=== PATIENT | male | born 1950 | race Caucasian/White ===

== ENCOUNTER 2017-12-02 15:18 | Observation (INO) | payer OTHER, MEDICARE ==
[~2017-12-02] VITALS: Ht 180.3 cm; Wt 77.1 kg
--- NOTE | 2017-12-02 16:08 | ED PSYCHIATRIC COMPLAINT ---
See Addendum History of Present Illness General Chief Complaint: ETOH/Drug Related Complaint Stated Complaint: SENT IN FOR HIGHWATCH DETOX Source: patient Exam Limitations: no limitations Vital Signs & Intake/Output Vital Signs & Intake/Output Vital Signs Date Time Temp Pulse Resp B/P B/P Pulse O2 O2 Flow FiO2 Mean Ox Delivery Rate 12/03 818 98.0 74 16 164/83 12/03 0819 98.0 74 16 164/83 97 Room Air 12/03 0607 98.8 89 18 135/75 12/03 0536 98.8 89 18 135/75 94 Room Air 12/03 0402 98.7 90 18 142/80 12/03 0316 98.4 76 17 142/80 96 Room Air 12/03 0053 98.8 70 19 148/78 95 Room Air 12/02 2300 98.5 73 18 138/75 12/02 2259 98.5 73 20 138/91 98 Room Air Room Air 12/02 2138 98.5 71 18 132/76 12/02 2032 98.8 88 18 127/77 97 Room Air Room Air 12/02 2031 98.8 88 20 127/77 12/02 1825 98.6 86 20 136/76 12/02 1825 98.6 76 18 136/86 98 Room Air Room Air 12/02 1822 98.6 86 18 136/76 12/02 1722 98.9 83 20 132/74 12/02 1719 98.9 83 18 134/72 98 Room Air Room Air 12/02 1625 98.9 76 20 122/76 12/02 1624 98.9 76 20 122/76 97 Room Air Room Air 12/02 1529 97.0 69 18 114/71 96 Room Air ED Intake and Output 12/03 0000 12/02 1200 Intake Total 1000 Output Total 600 Balance 400 Intake, IV 1000 Output, Urine 600 Patient 170 lb Weight Allergies Coded Allergies: No Known Allergies (12/02/17) Reconcile Medications Citalopram Hydrobromide (Citalopram HBr) 20 MG TABLET 1 TAB PO DAILY MENTAL HEALTH (Reported) Gabapentin 400 MG CAPSULE 1 CAP PO PRN UNKNOWN (Reported) Latanoprost 0.005 % DROPS 1 GTT OU QHS BOTH EYES (Reported) Levothyroxine Sodium 88 MCG TABLET 1 TAB PO DAILY THYROID (Reported) Timolol Maleate 0.5 % DROPS 1 GTT OU QAM BOTH EYES (Reported) Trazodone HCl 50 MG TABLET 1 TAB PO QPM PRN SLEEP (Reported) Triage Note: SENT BY [employer] FOR ALCOHOL DETOX PATIENT INTOXICATED W/ FAMILY SLOW VERBAL RESPONSE DENIES ILLNESS OR INJURY Triage Nurses Notes Reviewed? yes Onset: Abrupt Duration: day(s): Timing: recent history HPI: 67-year-old male comes in sent from [facility] detox facility for medical clearance. Patient has a history of heavy alcohol use. History of alcohol withdrawal seizure and was admitted to the ICU about a year ago. Denies any suicidal or homicidal ideation. Denies any other drug use. Patient has family here for support. His most recent alcohol level was 0.28 on breathalyzer. (Bobby Davidson) Past History Travel History Traveled to [place] past 21 day No Medical History Any Pertinent Medical History? see below for history Neurological: delerium tremens EENT: glaucoma Cardiovascular: NONE Respiratory: NONE Gastrointestinal: NONE Hepatic: NONE Renal: NONE Musculoskeletal: chronic back pain Psychiatric: depression Endocrine: hypothyroidism Blood Disorders: NONE Cancer(s): NONE Surgical History Surgical History: non-contributory Psychosocial History What is your primary language Spanish Tobacco Use: Never used ETOH Use: heavy use Family History Hx Contributory? No (Bobby Davidson) Review of Systems Review of Systems Constitutional: Reports: no symptoms. EENTM: Reports: no symptoms. Respiratory: Reports: no symptoms. Cardiovascular: Reports: no symptoms. GI: Reports: no symptoms. Genitourinary: Reports: no symptoms. Musculoskeletal: Reports: no symptoms. Skin: Reports: no symptoms. Neurological/Psychological: Reports: see HPI. Hematologic/Endocrine: Reports: no symptoms. Immunologic/Allergic: Reports: no symptoms. All Other Systems: Reviewed and Negative (Bobby Davidson) Physical Exam Physical Exam General Appearance: well developed/nourished, mild distress Head: atraumatic Ears, Nose, Throat: normal ENT inspection, hearing grossly normal Neck: normal inspection Respiratory: no respiratory distress Cardiovascular: regular rate/rhythm Gastrointestinal: soft, non-tender Extremities: normal range of motion Neurological/Psychiatric: awake, agitated Appearance/Memory/Insight: appropriate appearance Behavoir/Eye Contact/Speech: cooperative Thoughts/Hallucinations: no apparent hallucination Skin: intact, normal color, warm/dry SAD PERSONS Done? patient not suicidal (Ron SANTACRUZ,Bobby) Progress Differential Diagnosis: dementia, drug intoxication, drug overdose, drug withdrawal, electrolyte abnormality Plan of Care: Orders Procedure Date/time Status Regular Diet 12/03 B Active Discharge Patient 12/03 0913 Active EKG 12/02 2026 Active Intake & Output 12/[address] in observation 12/02 1608 Active ED Holding Orders 12/02 1608 Active Patient Data 12/02 1608 Active Vital Signs 12/02 1608 Active Code Status 12/02 1608 Active CIWA 12/02 1526 Active URINE DRUG SCREEN FOR ER ONLY 12/02 1526 Complete LIPASE 12/02 1526 Complete ETHANOL 12/02 1526 Complete COMPREHENSIVE METABOLIC PANEL 12/02 1526 Complete CBC WITHOUT DIFFERENTIAL 12/02 1526 Complete AMYLASE 12/02 1526 Complete Current Medications Sig/Latanya Start time Last Medication Dose Stop Time Status Admin Latanoprost 1 GTT AT BEDTIME 12/03 2200 AC (Xalatan) Citalopram 20 MG DAILY 12/03 1000 AC Hydrobromide (Celexa) Timolol Maleate 1 GTT QAM 12/03 1000 AC (Timoptic) Levothyroxine Sodium 0.088 MG DAILY AC 12/03 0807 AC 12/03 (Synthroid) 0853 Laboratory Tests 12/02/17 1621: Anion Gap 13, Estimated GFR > 60, BUN/Creatinine Ratio 15.6, Glucose 101 H, Calcium 9.0, Total Bilirubin 0.2, AST 47, ALT 55, Alkaline Phosphatase 83, Total Protein 6.0 L, Albumin 3.5, Globulin 2.5, Albumin/Globulin Ratio 1.4, Amylase 82, Lipase 152, CBC w Diff NO MAN DIFF REQ, RBC 3.88 L, MCV 92.1, MCH 30.7, MCHC 33.3, RDW 15.1 H, MPV 8.4, Gran % 51.1, Lymphocytes % 35.2, Monocytes % 8.1, Eosinophils % 3.9, Basophils % 1.7, Absolute Granulocytes 2.0, Absolute Lymphocytes 1.4, Absolute Monocytes 0.3, Absolute Eosinophils 0.2, Absolute Basophils 0.1, Serum Alcohol 263.0 12/02/17 1611: Urine Opiates Screen < 100.00, Methadone Screen < 40, Barbiturate Screen 78, Ur Phencyclidine Scrn < 6.00, Amphetamines Screen < 100, U Benzodiazepines Scrn < 85, Urine Cocaine Screen < 50, Urine Cannabis Screen < 5.00 Hand-Off Endorsed To: Devon Peng MD Endorsed Time: 2145 (Bobby Davidson) Comments: 12/02/2017 8:39:08 PM patient signed out to me by Dr. Crowley at shift exchange mechanic. Patient is resting comfortably. 12/03/2017 6:53:48 AM patient signed out to Dr. Crowley at shift exchange mechanic after an uneventful emergency department stay overnight. (Devon Peng MD) Departure Departure Condition: Stable Clinical Impression Primary Impression: Alcoholism Departure Forms: Customer Survey General Discharge Information (Bobby Davidson) Departure Disposition: HOME OR SELF CARE Additional Instructions: YOU ARE CLEARED TO GO TO [facility] FOR ALCOHOL REHAB PA/MUD MIXER HELPER Co-Sign Statement Statement: ED Attending supervision documentation- [X] I saw and evaluated the patient. I have also reviewed all the pertinent lab results and diagnostic results. I agree with the findings and the plan of care as documented in the PA's/MUD MIXER HELPER's documentation. [X] I have reviewed the ED Record and agree with the PA's/MUD MIXER HELPER's documentation. [] Additions or exceptions (if any) to the PAs/MUD MIXER HELPER's note and plan are summarized below: [] ([place]o [place],Lan Antony) ED Attending Observation Initial Observation Note: I have seen and personally examined DAVON DRISCOLL on 12/02/17 at 1608. I agree with the current emergency department documentation. The disposition (admission or discharge) is uncertain at this time, he needs a period of observation for the following reason(s): [Patient has a history of ICU admission for alcohol withdrawal. Patient is requesting alcohol detox. Patient will need close observation and frequent CIWA scores to help determine if he will require medical admission for a few the stable for inpatient rehabilitation.] The ED Nurse caring for this patient has been personally informed as to what the patient is being observed for. Observation Re-Evaluation: I have reevaluated DAVON DRISCOLL on 12/03/17 at 0712. The physical findings that support the continued need to observe this patient include [patient CIWA score went as high as 5 however it has come back down. We 'll continue to monitor.]. Observation Discharge: I have reevaluated DAVON DRISCOLL on 12/03/17 at 0912. The patient is: ([X]): Stable for discharge (): To be admitted to Nursing Floor (): To be placed in Observation on Nursing Floor (): For transfer to other facility The patient was being observed for [alcohol dependency and acute withdrawal] As a result of that observation, I have determined [safe for discharge to alcohol rehabilitation.]. ([place],Lan Antony)
[2017-12-02 16:25] VITALS: BP 122/76
[2017-12-02] MEDS ORDERED: LATANOPROST2.5 ML OU (16:25)
[2017-12-02 16:26] LABS: ABSOLUTE BASOPHIL COUNT 0.1 /CUMM (0.0-0.2); ABSOLUTE EOSINOPHIL COUNT 0.2 /CUMM (0.0-0.7); ABSOLUTE LYMPH COUNT 1.4 /CUMM (1.2-3.4); ABSOLUTE MONOCYTE COUNT 0.3 /CUMM (0.10-0.60); BASOPHIL % 1.7 % (0.0-2.0); EOSINOPHIL % 3.9 % (0-5); GRANULOCYTE % 51.1 % (42.2-75.2); HEMATOCRIT 35.7 % (42-52); MEAN CORPUSCULAR HGB 30.7 PG (27.0-31.0); MEAN CORPUSCULAR HGB CONC 33.3 G/DL (33.0-37.0); MEAN CORPUSCULAR VOLUME 92.1 FL (80.0-94.0); MEAN PLATELET VOLUME 8.4 FL (7.4-10.4); PLATELET COUNT 213 /CUMM (130-400); RBC DISTRIBUTION WIDTH 15.1 % (11.5-14.5); RED BLOOD CELL CT 3.88 /CUMM (4.70-6.10); WHITE BLOOD CELL COUNT 3.9 /CUMM (4.8-10.8)
[2017-12-02] MEDS ORDERED: TIMOLOL MALEATE5 M4 OU (16:26)
[2017-12-02] MEDS ORDERED: LEVOTHYROXINE88 MCG PO (16:26)
[2017-12-02] MEDS ORDERED: CITALOPRAM HBR20 MG PO (16:26)
[2017-12-02] MEDS ORDERED: GABAPENTIN400 M2 PO (16:27)
[2017-12-02] MEDS ORDERED: TRAZODONE HCL50 M1 PO (16:27)
[2017-12-02 17:22] VITALS: BP 132/74
[2017-12-02 18:25] VITALS: BP 136/76
[2017-12-02 20:31] VITALS: BP 127/77
[2017-12-02 21:38] VITALS: BP 132/76
[2017-12-02 23:00] VITALS: BP 138/75
[2017-12-03 04:02] VITALS: BP 142/80
[2017-12-03 06:07] VITALS: BP 135/75
[2017-12-03 08:19] VITALS: BP 164/83
== END 2017-12-03 10:24 | disposition other institution (70) ==
LOC: ERH 15:18 → ERHI 16:17
PROVIDERS: Physician Assistant
DX: F10.229 Alcohol dependence with intoxication, unspecified (principal); H40.9 Unspecified glaucoma; M54.9 Dorsalgia, unspecified; F32.9 Major depressive disorder, single episode, unspecified; E03.9 Hypothyroidism, unspecified; Z79.899 Other long term (current) drug therapy
CPT/HCPCS: 6090; 80307; 93005; 93010; 96360; G0378; G0480; J3101